=== PATIENT | female | born 1945 | race Caucasian/White ===

== ENCOUNTER → 2022-10-31 09:18 | Outpatient (CLI) | payer MEDICARE, SELFPAY ==
[2022-10-31 19:42] LABS: HEMOLYSIS 20 (0-50); Iron 136 ug/dL (37-170)
[2022-10-31 19:53] LABS: Percent Iron Saturation 46 % (15-50); Total Iron Binding Capacity 294 ug/dL (265-497)
[2022-10-31 19:57] LABS: Transferrin 224 mg/dL (206-381)
[2022-10-31 19:58] LABS: Add Manual Diff / Slide Review NO; Basophils Absolute Auto 0 /uL (0-100); Basophils Percent Auto 0.8 % (0-2); Eosinophils Absolute Auto 200 /uL (0-450); Eosinophils Percent Auto 4.1 % (2-4); Hematocrit 37.8 % (36-46); Lymphocytes Absolute Auto 1900 /uL (1100-4500); Mean Corpuscular HGB Conc 34.5 % (30-36); Mean Corpuscular Hemoglobin 29.5 PG (26-34); Mean Corpuscular Volume 85.4 fL (80-100); Monocytes Absolute Auto 300 /uL (0-900); Monocytes Percent Auto 6.4 % (3-14); Neutrophils Absolute Auto 2100 /uL (1500-7000); Neutrophils Percent Auto 46.7 % (50-75); Platelet Count 304 X10^3/uL (150-400); Red Blood Cell Count 4.42 X10^6/uL (4.0-5.2); Red Cell Distribution Width 13.1 % (11.6-14.8); White Blood Cell Count 4.5 X10^3/uL (4.5-11.0)
[2022-10-31 20:06] LABS: Erythrocyte Sedimentation Rate 6 MM/HR (0-20)
[2022-10-31 20:07] LABS: Alanine Aminotransferase 21 IU/L (<35); Albumin 4.4 g/dL (3.5-5.0); Albumin Globulin Ratio 1.6 (1.0-2.8); Alkaline Phosphatase 50 U/L (38-126); Aspartate Aminotransferase 30 IU/L (14-36); BUN Creatinine Ratio 22.6 (6-22); Bilirubin Total 0.4 mg/dL (0.2-1.3); Blood Urea Nitrogen 14 mg/dL (7-17); Carbon Dioxide 28 mmol/L (22-32); Chloride 100 mmol/L (98-107); Estimated Glomerular Filt Rate > 60 mL/min (>60); Globulin 2.8 g/dL (1.7-4.1); Glucose 87 mg/dL (80-110); Potassium 4.3 mmol/L (3.4-5.1); Sodium 136 mmol/L (137-145); Total Protein 7.2 g/dL (6.3-8.2); Triglycerides 148 mg/dL (35-150)
[2022-10-31 20:10] LABS: Follicle Stimulating Hormone 82.8 mIU/mL; Progesterone, Total 0.73 ng/mL
[2022-10-31 20:25] LABS: Estradiol, Total 27.8 pg/mL
[2022-10-31 23:49] LABS: Cancer Antigen 125 13.2 U/mL (0-35); Carcinoembryonic Antigen 2.5 ng/mL (0.1-3.0)
[2022-11-01 00:09] LABS: Gamma Glutamyl Transpeptidase 18 U/L (12-43); HEMOLYSIS 18 (0-50); Lactate Dehydrogenase 194 U/L (120-246)
[2022-11-02 03:34] LABS: Cholesterol HDL Ratio 3.7 ratio (0.0-4.4); Cholesterol,Total 219 mg/dL (100-199); HDL Cholesterol 60 mg/dL (>39); Immunoglobulin A 88 mg/dL (64-422); Immunoglobulin G, Quantitative 949 mg/dL (586-1602); Immunoglobulin M, Quantitative 84 mg/dL (26-217); LDL Cholesterol Cal 135 mg/dL (0-99); Triglycerides 134 mg/dL (0-149); VLDL Cholesterol Cal 24 mg/dL (5-40)
[2022-11-02 08:09] LABS: Varicella IgG Antibody 1172 index (Immune >165)
[2022-11-02 09:14] LABS: EBV Virus IgG Ab > 600.0 U/mL (0.0-17.9); EBV Virus IgM Ab < 36.0 U/mL (0.0-35.9)
[2022-11-03 07:08] LABS: Dehydroepiandrosterone Sulfate 41.8 ug/dL (13.9-142.8)
[2022-11-05 12:10] LABS: Parvovirus B19 IgG 4.2 index (0.0-0.8)
[2022-11-06 15:48] LABS: Varicella IgM Antibody <0.91 index (0.00-0.90)
== END ==
PROVIDERS: PCP Naturopath
DX: F13.239 Sedative, hypnotic or anxiolytic dependence with withdrawal, unspecified (principal); R50.9 Fever, unspecified; G47.01 Insomnia due to medical condition; N95.1 Menopausal and female climacteric states; R53.81 Other malaise; R53.82 Chronic fatigue, unspecified; R63.4 Abnormal weight loss; Z81.1 Family history of alcohol abuse and dependence
CPT/HCPCS: 80053; 80061; 82378; 82627; 82670; 82784; 82977; 83001; 83540; 83550; 83615; 84100; 84144; 84403; 84478; 85025; 85651; 86304; 86644; 86645; 86658; 86665; 86695; 86747; 86787

== ENCOUNTER → 2022-11-06 11:19 | Outpatient (CLI) | payer MEDICARE, SELFPAY ==
[2022-11-06 20:36] LABS: Alanine Aminotransferase 21 IU/L (<35); Albumin 4.4 g/dL (3.5-5.0); Albumin Globulin Ratio 1.5 (1.0-2.8); Alkaline Phosphatase 53 U/L (38-126); Aspartate Aminotransferase 28 IU/L (14-36); BUN Creatinine Ratio 18.8 (6-22); Bilirubin Total 0.5 mg/dL (0.2-1.3); Blood Urea Nitrogen 12 mg/dL (7-17); Calcium 9.4 mg/dL (8.4-10.2); Carbon Dioxide 29 mmol/L (22-32); Chloride 101 mmol/L (98-107); Estimated Glomerular Filt Rate > 60 mL/min (>60); Glucose 86 mg/dL (80-110); HEMOLYSIS < 15 (0-50); Sodium 138 mmol/L (137-145); Total Protein 7.4 g/dL (6.3-8.2)
[2022-11-06 20:42] LABS: Add Manual Diff / Slide Review NO; Basophils Absolute Auto 0 /uL (0-100); Basophils Percent Auto 0.7 % (0-2); Eosinophils Absolute Auto 100 /uL (0-450); Eosinophils Percent Auto 2.4 % (2-4); Hematocrit 37.4 % (36-46); Hemoglobin 12.7 g/dL (12.0-16.0); Lymphocytes Absolute Auto 2200 /uL (1100-4500); Lymphocytes Percent Auto 41.8 % (25-40); Mean Corpuscular Hemoglobin 29.1 PG (26-34); Mean Corpuscular Volume 85.8 fL (80-100); Monocytes Absolute Auto 400 /uL (0-900); Neutrophils Absolute Auto 2500 /uL (1500-7000); Neutrophils Percent Auto 48.1 % (50-75); Platelet Count 334 X10^3/uL (150-400); Red Blood Cell Count 4.36 X10^6/uL (4.0-5.2); White Blood Cell Count 5.2 X10^3/uL (4.5-11.0)
[2022-11-06 20:54] LABS: Free T3, Triiodothyronine Free 4.35 pg/mL (2.77-5.27)
[2022-11-06 21:08] LABS: TSH w/ Reflex to FT4 1.02 uIU/mL (0.47-4.68)
[2022-11-08 16:10] LABS: QuantiFERON Mitogen Value >10.00 IU/mL (.); QuantiFERON Nil Value 0.05 IU/mL (.); QuantiFERON TB Gold Plus Negative (Negative); QuantiFERON TB1 Ag Value 0.04 IU/mL (.); QuantiFERON TB2 Ag Value 0.05 IU/mL (.)
== END ==
PROVIDERS: PCP Naturopath; Visit Provider Physician Assistant
DX: R61 Generalized hyperhidrosis (principal); R63.4 Abnormal weight loss
CPT/HCPCS: 80053; 84443; 84481; 85025; 86480

== ENCOUNTER → 2022-11-07 13:42 | Outpatient (CLI) | payer MEDICARE, SELFPAY ==
[2022-11-11 15:52] LABS: Fecal Immunochemical Test Negative (Negative)
== END ==
PROVIDERS: PCP Physician Assistant; Visit Provider Physician Assistant
DX: R61 Generalized hyperhidrosis (principal); R63.4 Abnormal weight loss
CPT/HCPCS: 82274

== ENCOUNTER → 2022-11-08 14:20 | Outpatient (CLI) | payer MEDICARE, SELFPAY ==
--- NOTE | 2022-11-08 14:22 | DI.US.S_ITS ---
PROCEDURE: US PELVIC COMPLETE INDICATIONS: PELVIC DISCOMFORT TECHNIQUE: Real-time scanning was performed of the pelvic organs, with image documentation. Additional endovaginal scanning was necessary due to incomplete visualization of the adnexal and endometrial structures by transabdominal scanning. COMPARISON: None. FINDINGS: Uterus: Uterus is anteverted and normal in size at 5.6 x 2.9 x 3.2 cm. The myometrium is heterogeneous. There are several scattered rounded and partially calcified myometrial masses each measuring less than 1 cm consistent with fibroids. The endometrium is thin, not well seen, and contains a few punctate and linear calcifications. measures about four mm combined thickness. Normal uterine vascularity. Ovaries: The right ovary measures 2.3 x 1.1 x 1.3 cm, with a calculated ovarian volume of 1.7 cc. The left ovary measures 1.9 x 1.1 x 1.4 cm, with a calculated ovarian volume of 1.5 cc. Ovaries have an age-appropriate sonographic appearance. There is a 5 mm follicle within the left ovary. Normal vascularity in each ovary. No adnexal masses are seen. Other: No pathologic free abdominal or pelvic fluid. IMPRESSION: 1. Diminutive, fibroid uterus which is age-appropriate in size and demonstrates degenerative change. 2. Age-appropriate ovaries. We strive to produce accurate, complete, and clear reports of imaging services. To assist us in improving patient care, this report was composed using standard report templates and voice recognition software. Therefore, it may contain abnormal punctuation, insertions and/or omissions. Occasional wrong-word or sound-alike substitutions may occur. Though we review the report and make efforts to correct it, we do recommend that the report be read carefully in proper context to recognize any text inaccuracies. Dictated by: Audra Duque M.D. on 11/08/2022 at 17:12 Approved by: Audra Duque M.D. on 11/08/2022 at 17:16
== END ==
PROVIDERS: PCP Physician Assistant; Referring Provider Nurse Practitioner Adult Health; Visit Provider Nurse Practitioner Adult Health
DX: R63.4 Abnormal weight loss (principal); R10.2 Pelvic and perineal pain; D25.9 Leiomyoma of uterus, unspecified
CPT/HCPCS: 76830; 76856; 93975